=== PATIENT | male | born 1955 ===

== ENCOUNTER → 2024-12-06 13:04 | Outpatient (BNVA) | payer MEDICARE, SELFPAY | PROVIDERS: Visit Provider Nurse Practitioner Gerontology | DX: N40.1 Benign prostatic hyperplasia with lower urinary tract symptoms (principal); R97.20 Elevated prostate specific antigen [PSA] | CPT/HCPCS: 51798; 81003; 99205 ==

== ENCOUNTER 2025-06-08 15:18 | Outpatient (CLI) | payer MEDICARE, SELFPAY | END 2025-06-08 15:19 | disposition home or self-care (01) | LOC: LBO 15:19 | PROVIDERS: Nurse Practitioner Gerontology; Visit Provider Urology | DX: R97.20 Elevated prostate specific antigen [PSA] (principal) | CPT/HCPCS: 36415; 84154 ==

== ENCOUNTER → 2025-06-13 14:54 | Outpatient (BNVA) | payer MEDICARE, SELFPAY | PROVIDERS: Visit Provider Nurse Practitioner Gerontology | DX: R97.20 Elevated prostate specific antigen [PSA] (principal) | CPT/HCPCS: 99213 ==